=== PATIENT | female | born 1990 | race African-American/Black ===

== ENCOUNTER 2019-10-02 11:40 | Emergency (ER) | payer OTHER ==
[~2019-10-02] VITALS: Ht 165.1 cm; Wt 93.4 kg
[2019-10-02 11:45] VITALS: BP 117/70
--- NOTE | 2019-10-02 12:38 | Emergency Room Report ---
History of Present Illness General Chief Complaint: Pain Source: Patient Present Illness HPI 29-year-old female presents to the emergency department complaining of 5 out of 10 severity pain localized to the left knee and left elbow x2 weeks is been progressive with associated swelling. Patient reports pain is exacerbated upon movement. She reports a history of knee dislocation at a young age from playing sports. She denies ever having any injury to the left elbow. She denies trauma or fall. She does report that 3 weeks ago she was very sick and she had to crawl to get to the bathroom and states that that is now only possible injury mechanism that she can think of. She denies erythema she denies history of autoimmune diseases. Denies history of gout. Patient reports that she is currently breast-feeding her 1-year-old child. She states she has not tried any medications for her symptoms. She denies any significant past medical history otherwise she denies any alleviating factors at this time. Patient reports she has some relief of her pain with rest. Denies numbness tingling or loss of sensation or gross motor movements of the extremities, incontinence of bowel or bladder. Denies CP, Palpitations, LOC, AMS, dizziness, Changes in Vision, weakness or a sudden severe headache. Allergies: Coded Allergies: PENICILLINS (Verified Allergy, Unknown, 10/02/19) Patient History Past Medical History: see triage record Past Surgical History: none Pertinent Family History: none Last Menstrual Period: 09/14/2019 Now: No Reviewed Nursing Documentation: PMH: Agreed; PSxH: Agreed Nursing Documentation-PMH Past Medical History: No Stated History Review of Systems All Other Systems: negative except mentioned in HPI Physical Exam Vital Signs Date Time Temp Pulse Resp B/P (MAP) Pulse Ox O2 Delivery O2 Flow Rate FiO2 10/02/19 11:45 98.1 68 15 117/70 (86) 96 Room Air Sp02 EP Interpretation: reviewed, normal General Appearance: no apparent distress, alert, GCS 15, non-toxic Head: normocephalic, atraumatic Eyes: bilateral eye normal inspection, bilateral eye PERRL ENT: hearing grossly normal, normal voice Neck: full range of motion Respiratory: lungs clear, normal breath sounds, speaking full sentences Cardiovascular #1: regular rate, rhythm, no edema, normal capillary refill Cardiovascular #2: 2+ radial (L), 2+ dorsalis pedis (L) - post. tibial Musculoskeletal: back normal - no back ttp., normal range of motion - with subjective/verbalized pain little to no grimmacing. , gait/station normal, tender - TTp to te anterior and lateral aspect of the left knee, some mild ST swelling noted. NO Erythema. Pain with Varus stress testing. No increased laxity on exam, negative ant. and post. drawer signs. Pt. has FROM with some mild pain. She is ambulatory and able to bear weight with some discomfort. TTP to the posterior aspect of the left elbow. Pain with external and internal rotation of the left forearm. There is no swelling, erythema, warmth or obvious deformity to the left elbow. FROM without grimmacing. Neurologic: alert, motor strength/tone normal, oriented x3, sensory intact, responsive, speech normal Psychiatric: judgement/insight normal Skin: normal color, normal inspection Medical Decision Making PA Attestation Dr. Andrade is my supervising Physician whom patient management has been discussed with. Diagnostic Impression: Primary Impression: Knee pain, left Qualified Codes: M25.562 - Pain in left knee Additional Impression: Elbow pain, left ER Course 29-year-old female presents to the emergency department complaining of 5 out of 10 severity pain localized to the left knee and left elbow x2 weeks is been progressive with associated swelling. Patient reports pain is exacerbated upon movement. She reports a history of knee dislocation at a young age from playing sports. She denies ever having any injury to the left elbow. She denies trauma or fall. She does report that 3 weeks ago she was very sick and she had to crawl to get to the bathroom and states that that is now only possible injury mechanism that she can think of. She denies erythema she denies history of autoimmune diseases. Denies history of gout. Patient reports that she is currently breast-feeding her 1-year-old child. She states she has not tried any medications for her symptoms. She denies any significant past medical history otherwise she denies any alleviating factors at this time. Patient reports she has some relief of her pain with rest. Denies numbness tingling or loss of sensation or gross motor movements of the extremities, incontinence of bowel or bladder. Denies CP, Palpitations, LOC, AMS, dizziness, Changes in Vision, weakness or a sudden severe headache. Ddx considered but are not limited to Fracture, dislocation, contusion, epidural abscess, Sprain/Strain/Spasm, GOUT, septic joint, Arthritis, Tendonitis , meniscal injury, autoimmune disorder just to name a few. Vital signs: are WNL, pt. is afebrile H&PE are most consistent with knee strain/ overuse. ORDERS: -X-ray Left knee complete 3 view - negative for fx, Dislocation, or significant soft tissue injury -X-ray Left Elbow complete 3 view - negative for fx, Dislocation, or significant soft tissue injury ED INTERVENTIONS: - Cory wrap applied to the Left knee by payroll technician. -Patient is provided with a cane and instructed on its use -I do not identify an emergent condition at this time. With current presentation , pt. is stable for close outpatient follow up and conservative treatment. D/ w pt. to return promptly to ED with worsening or new symptoms.- Pt. verbalizes' understanding and agreement with proposed treatment plan. DISCHARGE: At this time pt. is stable for d/c to home. Will provide printed patient care instructions, and any necessary prescriptions. Care plan and follow up instructions have been discussed with the patient prior to discharge. Other X-Ray Diagnostic Results Other X-Ray Diagnostic Results #1: X-Ray ordered: LEFT KNEE # of Views/Limited Vs Complete: 3 View Indication: Pain EP Interpretation: Yes LULI Xray: Interpretation reviewed, by supervising MD, and agrees with findings. Interpretation: no dislocation, no soft tissue swelling, no fractures Impression: No acute disease Electronically Signed by: NELSON SALDAÑA PA-C Other X-Ray Diagnostic Results #2: X-Ray ordered: LEFT ELBOW # of Views/Limited Vs Complete: 3 View Indication: Pain EP Interpretation: Yes PA Xray: Interpretation reviewed, by supervising MD, and agrees with findings. Interpretation: no dislocation, no soft tissue swelling, no fractures Impression: No acute disease Electronically Signed by: Nelson Saldaña PA-C Last Vital Signs Date Time Temp Pulse Resp B/P (MAP) Pulse Ox O2 Delivery O2 Flow Rate FiO2 10/02/19 11:45 98.1 68 15 117/70 (86) 96 Room Air Status: improved Disposition: HOME, SELF-CARE Condition: Stable Scripts Ibuprofen* (MOTRIN*) 600 Mg Tablet 600 MG ORAL THREE TIMES A DAY, #30 TAB 0 Refills Prov: Nelson Saldaña 10/02/19 Additional Instructions: Take medications as directed. Follow up with YOUR PRIMARY CARE PROVIDER FOR A REFERRAL TO AN [facility] in 3-5 days, even if your symptoms have resolved. If symptoms persist MRI may be required at the discretion of your PCP or Ortho Specialist. --Please review list of primary care clinics, if you do not already have a primary care provider who can give you an Orthopedic Referral. Return sooner to ED if new symptoms occur, or current symptoms become worse. - Please note that this Emergency Department Report was dictated using [employer] technology software, occasionally this can lead to erroneous entry secondary to interpretation by the dictation equipment. Nelson Saldaña Oct 02, 2019 12:38
--- NOTE | 2019-10-02 13:28 | Diagnostic Imaging Report ---
Indication: Pain Findings: 3 views of the left elbow were obtained. No acute fractures, malalignment, erosions or periostitis are identified. Soft tissues are unremarkable. Impression: No acute injury
[2019-10-02] MEDS ORDERED: IBUPROFEN600 MG ORAL (13:33)
--- NOTE | 2019-10-02 14:00 | NUR ---
ED Nurse Note:pt relates painful weight bearing. good cms distally to left knee. awaits dispo
--- NOTE | 2019-10-02 14:16 | NUR ---
ED Nurse Note: Pt cleared by health care Provider for discharge. DC instructions/prescription was given and explained to pt and verbalized understanding of teachings. All medical deviecs such as ID band removed. Pt is AAO x4, ambulatory and left with all personal belongings. pt tolerates michael wrap application well. cane use demonstrated. pt agrees to f/u plan
[2019-10-02 14:20] VITALS: BP 117/70
--- NOTE | 2019-10-02 16:28 | Diagnostic Imaging Report ---
INDICATION: Knee Pain COMPARISON: None 3 views of the left knee were obtained. FINDINGS: No acute fracture, malalignment, or joint effusion are identified. Impression: Negative for acute injury
== END 2019-10-02 14:20 | disposition home or self-care (01) ==
LOC: EMR 13:35
DX: M25.562 Pain in left knee (principal); M25.522 Pain in left elbow; Z88.0 Allergy status to penicillin
CPT/HCPCS: 73080; 73562; Z7502; 99284